=== PATIENT | male | born 1945 | race Caucasian/White ===

== ENCOUNTER 2019-11-22 18:12 | Inpatient (IN) | payer MEDICARE ==
[2019-11-22] MEDS ORDERED: MULTI-DAY VITAM1 TAB (18:32)
[2019-11-22] MEDS ORDERED: RANITIDINE HCL150 M1 PO (18:33)
[2019-11-22] MEDS ORDERED: SEROQUEL50 MG PO (18:33)
[2019-11-22] MEDS ORDERED: ZOCOR40 MG (18:33)
[2019-11-22] MEDS ORDERED: BAYER CHEWABLE81 MG (18:34)
[2019-11-22] MEDS ORDERED: FLOMAX0.4 MG (18:34)
[2019-11-22] MEDS ORDERED: SENNA LAXATIVE8.6 MG (18:35)
[2019-11-22 20:15] LABS: UDS - AMPHET NEGATIVE QUAL (NEGATIVE); UDS - BARB NEGATIVE QUAL (NEGATIVE); UDS - BENZO NEGATIVE QUAL (NEGATIVE); UDS - COCAINE NEGATIVE QUAL (NEGATIVE); UDS - OPIATE NEGATIVE QUAL (NEGATIVE); UDS - PCP NEGATIVE QUAL (NEGATIVE); UDS - THC NEGATIVE QUAL (NEGATIVE)
[2019-11-22 20:29] LABS: BASOPHILS 0.9 % (0-2); EOSINOPHILS 2.2 % (0-7); HEMATOCRIT 43.4 % (42.0-54.0); HEMOGLOBIN 14.2 g/dL (13.5-17.5); IMMATURE GRANULOCYTES 0.1 % (0-5); LYMPHOCYTES 22.9 % (15-50); MCH 30.2 pg (26.0-34.0); MCHC 32.7 g/dL (31.0-37.0); MCV 92.3 fL (80.0-100.0); MEAN PLATELET VOLUME 9.8 fL (7.4-10.4); MONOCYTES 8.5 % (2-11); NEUTROPHILS 65.4 % (40-80); PLATELET COUNT 226 10x3/uL (130-400)
[2019-11-22 20:30] LABS: CALC OSMOLALITY 278 mosm/kg (275-300); CALCIUM 8.9 mg/dL (8.5-10.1); CHLORIDE - SERUM 104 mmol/L (98-107); GLUCOSE 104 mg/dL (74-106); POTASSIUM - SERUM 3.9 mmol/L (3.5-5.1); SODIUM 140 mmol/L (136-145); UREA NITROGEN 13 mg/dL (7-18); eGFR NON AFRICAN AMERICAN 78 mL/min (90-120)
[2019-11-22 20:46] LABS: ALBUMIN 3.9 g/dL (3.4-5.0); ALKALINE PHOSPHATASE 78 U/L (30-120); ALT (SGPT) 37 U/L (10-68); BILIRUBIN - TOTAL 0.67 mg/dL (0.2-1.3); PROTEIN - SERUM 7.5 g/dL (6.4-8.2); THYROID STIMULATING HORMONE 2.25 uIU/mL (0.36-3.74)
[2019-11-22 21:38] LABS: BILIRUBIN NEGATIVE (NEGATIVE); GLUCOSE NEGATIVE (NEGATIVE); KETONE NEGATIVE (NEGATIVE); NITRITE NEGATIVE (NEGATIVE); SPECIFIC GRAVITY 1.025 (1.005-1.020); UROBILINOGEN NORMAL (NORMAL)
[2019-11-22] MEDS ORDERED: ZOLOFT100 MG PO (22:54)
--- NOTE | 2019-11-22 23:46 | NUR ---
PT ADMIT TO [place] FROM [facility]. VERBAL CONSENT FROM NOREEN ELIZABETH. SHE STATED HE IS A DNR. HIS CODE WORD 4718. HE IS ABLE TO AMBULATE ON HIS OWN WITHOUT ASST. HE IS INCONT OF B&B AT TIMES. VERIFIED HOME MEDS WITH . PT VSS AND IS RESTING CALMLY IN BED. HE IS A&O X3.
[2019-11-23 00:01] VITALS: BP 126/84; BMI 24.2
--- NOTE | 2019-11-23 02:20 | NUR ---
INCREASING COFUSION THOUGH THE NIGHT. BECOMING AGITATED. REDIRECT AND REORIENT.
--- NOTE | 2019-11-23 05:32 | NUR ---
PT HAS URGENCY TO VOID MANY TIMES THIS EVENING. HE DOESNT SEEM TO EMPTY HIS BLADDER COMPLETELY. REDIRECT WILL CONTINUE TO MONITOR.
--- NOTE | 2019-11-23 06:44 | NUR ---
VERY CONFUSED. WANTS LEAVE LEAVE UNIT. WANTS TO CALL . BECOMES VERY AGITATED.
[2019-11-23 07:47] VITALS: BP 139/90
[2019-11-23 08:05] LABS: CHOL - HDL RATIO 2.1 ratio (2.3-4.9); CHOLESTEROL, TOTAL 160 mg/dL (0-200); HDL CHOLESTEROL 76 mg/dL (32-96); LDL CHOLESTEROL 70 mg/dL (0-100); LDL-HDL RATIO 0.9 ratio (1.5-3.5); TRIGLYCERIDE 70 mg/dL (30-200)
--- NOTE | 2019-11-23 08:30 | NUR ---
RECEIVED IN HALLWAY OUTSIDE OF NURSES STATION. CALM AND COOPERATIVE WITH CARE AND ASSESSMENT. VERY CONFUSED. VERY FORGETFUL. EXIT SEEKING. PACING. INTRUSIVE. REDIRECT AND REORIENT NEEDED. EATING BREAKFAST AT THIS TIME. CONTINUE PLAN OF CARE.
--- NOTE | 2019-11-23 13:38 | NUR ---
PT CONTINUES TO WANDER AND PACE THE UNIT. PT IS EXIT SEEKING AND IS UNABLE TO UNDERSTAND REDIRECTION. PT IS LOOKING FOR THE FIRESTATION. ATTEMPTED TO REDIRECT TO ENVIRONMENT.
[2019-11-23 13:51] VITALS: Wt 82.5 kg
[2019-11-23 19:43] VITALS: BP 139/87
--- NOTE | 2019-11-23 19:54 | NUR ---
RECEIVED IN DAYROOM. SITTING AT TABLE SOCIALIZING WITH PEERS. VERY CONFUSED. CALM AND COOPERATIVE WITH CARE AND ASSESSMENT. NO SIGNS OF AGGRESSION. REDIRECT AND REORIENT NEEDED. CONTINUES TO SIT CALMLY IN DAYROOM. CONTINUE PLAN OF CARE.
[2019-11-24 08:10] LABS: RAPID PLASMA REAGIN Non Reactive (Non Reactive)
[2019-11-24 08:15] VITALS: BP 122/84
--- NOTE | 2019-11-24 10:17 | PSY ---
PATIENT NAME:LISBETH BUCHANAN JR MEDICAL RECORD: [id number] : 47 LOCATION:[facility] ADMISSION DATE: 11/22/19 ACCOUNT: [id number] PSYCHIATRIC EVALUATION DATE OF EVALUATION: 11/23/19 IDENTIFYING DATA: The patient is 74 years old and he is admitted to the hospital on a voluntary basis. CHIEF COMPLAINT: Confusion. HISTORY OF PRESENT ILLNESS: The patient presented to the Emergency Room yesterday evening. He has a known history of Alzheimer's disease and he has become increasingly agitated with his family. The family reports that they are not able to manage him, in fact that the agitation was so severe they had to bring him to the Emergency Room yesterday evening. The patient himself has no recollection of these events. He is calm and cooperative. He is clearly very impaired, but he is also 1:1 with a staff member who is constantly answering the same questions and redirecting him. PAST MEDICAL HISTORY: Significant for gastroesophageal reflux disease, benign prostatic hypertrophy, chronic constipation and hyperlipidemia. PAST PSYCHIATRIC HISTORY: Significant for an established diagnosis of dementia. He also has a history of anxiety and depression, which I believe are associated with the dementia. FAMILY HISTORY: Unknown. ALLERGIES: No known drug allergies. CURRENT MEDICATIONS: Include Seroquel, Zocor, aspirin, Flomax, and Zoloft. SOCIAL HISTORY: The patient is single. He has been in the past and he has adult children, although he cannot tell me how many. He worked in the [employer] and denies a history of drug or alcohol abuse. He thinks he is in [place], [place]. MENTAL STATUS EXAMINATION: The patient is awake and oriented to person only. His mood is euthymic. His affect appropriate. Thought processes are goal directed. Memory, concentration, and abstraction abilities are severely impaired and he denies any intent to harm himself or others as well as psychotic symptoms. ASSESSMENT: AXIS I: Major neurocognitive disorder of the Alzheimer's type with behavioral disturbances. AXIS II: None. AXIS III: Hyperlipidemia, benign prostatic hypertrophy. AXIS IV: Moderate. AXIS V: Global assessment of functioning is 30. PLAN: At this time, the patient is admitted to the hospital secondary to agitated behavior associated with severe and advanced dementing illness. He will be treated with both mood stabilizing and memory enhancing medications. His long-term prognosis is guarded. TRANSINT:[id number] Voice Confirmation ID: [id number] DOCUMENT ID: [id number] ANA DOSHI MD at 1017 CC: [id number] DICTATION DATE: 11/23/19 1235 SCAGLIOLA MECHANIC: 11/23/19 1300 ADM IN [facility] [address] [place] [address]
--- NOTE | 2019-11-24 11:21 | NUR ---
The patient is confused. He ambulates independently. He has poor insight into his situation, forgets things in minutes. He is calm, he has not shown any aggression today. Provide prescribed meds. The patient is compliant with meds. Continue POC.
--- NOTE | 2019-11-24 17:39 | NUR ---
PT IS VERY ANIXOUS, SHAKING AND ASKING HOW IS HE GONNA PAY FOR HIS DINNER? NURSE EXPLAINED THAT EVERYTHING WAS COVERED. NURSE ASKED IF HE WAS ANXIOUS. PT STATED HELL YES IM NERVOUS. EVERY LITTLE THING MAKES ME NERVOUS. ATIVAN 0.5 MG PO ADMINISTERED PER DR. DOSHI ORDER. WILL CONT TO MONITOR FOR EFFECTIVENESS.
[2019-11-24 20:30] VITALS: BP 126/80
--- NOTE | 2019-11-24 21:26 | NUR ---
PATIENT IS VERY CONFUSED, ANXIOUS, HAS TO BE DIRECTED AND REDIRECTED, COMPLIANT WITH MEDS, PATIENT'S VISUAL PERCEPTION SEEMS TO BE OFF, HE HESITATES TO SIT IN A CHAIR AND HE IS REACHING OUT FOR THINGS WHEN THEY ARE FAR AWAY FROM HIM. WILL FOLLOW POC
[2019-11-25 08:16] VITALS: BP 117/89
--- NOTE | 2019-11-25 08:27 | PN ---
PATIENT:LISBETH BUCHANAN JR MEDICAL RECORD: [id number] LOCATION:[facility] ADMISSION DATE: 11/22/19 PROGRESS NOTE DATE OF SERVICE: 11/24/2019 SUBJECTIVE: The patient's case was discussed with staff. He has no new complaint. OBJECTIVE: The patient has been calm, cooperative without any aggressive behaviors today. He did sleep well last night. He is also eating well. ASSESSMENT: Dementia. PLAN: The patient will be given Aricept at a dose of 5 mg at bedtime. Aricept is being used to treat his underlying cognitive impairment. He will be monitored for clinical changes associated with it. TRANSINT:[id number] Voice Confirmation ID: [id number] DOCUMENT ID: [id number] ANA DOSHI MD at 0827 CC: [id number] DICTATION DATE: 11/24/19 1500 SUPERVISOR COAL HANDLING: 11/24/19 [address] [facility] [address] [place] [address]
[2019-11-25 08:59] VITALS: BP 117/89
--- NOTE | 2019-11-25 09:25 | NUR ---
The patient is confused and he is unable to follow simple direction. He says he can not hear. He ambulates independently. Provide prescribed meds. He is co,pliant with meds. He has poor insight into his situation. He has not shown any aggression today. He is very forgetful. Continue POC.
[2019-11-25 20:25] VITALS: BP 135/83
--- NOTE | 2019-11-25 22:59 | NUR ---
B)RECEIVED PATIENT SITTING IN THE DAYROOM. CONFUSED AND DISORIENTED. [place] AND MISUNDERSTANDS WHAT IS BEING SAID. RELATES HE'S AT A PLACE FOR OLDER PEOPLE TO WORK WITH KEEPING THEM IN SHAPE. I)ADMINISTER MEDS AND MONITOR COMPLIANCE. REORIENT NEEDED. R)MED COMPLIANT. POOR REORIENTATION DUE TO IMPAIRED ABILITY TO COMPREHEND, PROCESS AND RETAIN INFORMATION. P)CONTINUE POC AND PROVIDE SAFE ENVIRONMENT.
[2019-11-26 09:39] VITALS: BP 130/78
--- NOTE | 2019-11-26 13:48 | NUR ---
Nutrition Follow-up: PO intake appears to fluctuate. Ate 10-100% of meals yesterday. Diet: Regular PO intake: 68% avg x 9 meals WT: 193# (11/22) No new labs Meds noted: Pepcid, Senokot -Encourage PO intake and honor food preferences. -Offer nutrition supplement if PO intake <50%. -Monitor wt. -RD following.
--- NOTE | 2019-11-26 16:27 | NUR ---
The patient is getting anxious, he is worried about his . He said he says "I keep getting all kinds of made up stories about where she is and I am worried about her. I love her and wanna take care of her." Provided ativan 0.5 mg po and stood and spoke with him for a few minutes. Asked him how they met, how long they had been , where they lived when they first and speaking to him calmed him a little bit. Will monitor his mood and behavior.
[2019-11-26 20:23] VITALS: BP 135/79
--- NOTE | 2019-11-26 21:46 | NUR ---
B.) PT IS ALERT AND ORIENTED TO SELF ONLY. HE HAS POOR INSIGHT INTO HIS SITUATION. HE IS VERY UNSTEADY WITH HIS GAIT SO HE USES A WHEELCHAIR TO ASSIST WITH AMBULATION. HE IS COOPERATIVE WITH STAFF. HE HAS VERY SHORT TERM RECALL. I.) PROVIDED PM MEDICATIONS. REDIRECT OFTEN. R.) COMPLIANT WITH ALL MEDICATIONS. DIFFICULT TO REDIRECT AT TIMES. P.) WILL CONTINUE TO MONITOR.
[2019-11-27 08:17] VITALS: BP 131/93
--- NOTE | 2019-11-27 10:00 | NUR ---
The patient gets himself worked up with worry. He is so concerned that his is going to divorce him because she has not been here to visit. Tried to explain that she is not able but he doesn't understand. Then he must have had a recall of something and he smacked his head and said "Oh, that's right." He wants to call her and talk to her, tried to explain to him that he can try to call her between 5:30 pm and 7:00 pm. He said "Is that 5:30 in the morning?" Explained to him that it is p.m. He said "In the morning?" Said to him "That it is in the evening." He is very confused and has poor insight into his situation and very poor short term memory recall. Continue POC.
--- NOTE | 2019-11-27 15:46 | NUR ---
ATIVAN 0.5MG PO GIVEN FOR ANXIETY.WANTS TO GO HOME.MISSING HIS .RESTLESS AND DIFFICULT TO REDIRECT.DOES NOT UNDERSTAND WHY HE IS HERE AND CAN'T GO HOME.
--- NOTE | 2019-11-27 16:41 | NUR ---
GOOD RESPONSE TO ATIVAN.CALM AND COMPLIANT .
[2019-11-27 20:11] VITALS: BP 137/83
--- NOTE | 2019-11-27 21:15 | NUR ---
B.) PT IS ALERT AND ORIENTED TO SELF ONLY. HE CONTINUES TO HAVE POOR INSIGHT INTO HIS SITUATION. HE IS VERY CONCERNED ABOUT HIS NOT KNOWING WHERE HE IS. HE IS ANXIOUS AND PACING AT TIMES. HE IS ABLE TO AMBULATE WITHOUT ASSIST. I.) PROVIDED PM MEDICATIONS PRESCRIBED. REDIRECT OFTEN. R.) COMPLIANT WITH ALL MEDICATIONS. DIFFICULT TO REDIRECT AT TIMES. P.) WILL CONTINUE TO MONITOR.
[2019-11-28 07:41] VITALS: BP 133/88
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
--- NOTE | 2019-11-28 19:42 | NUR ---
RECEIVED IN DAYROOM. WALKING ABOUT SOCIALING WITH PEERS AND STAFF. CALM AND COOPERATIVE WITH CARE NAD ASSESSMENT. NO SIGNS OF AGGRESSION. REDIRECT AND REORIENT NEEDED. SITTING CALMLY AT THIS TIME. CONTINUE PLAN OF CARE.
[2019-11-28 20:00] VITALS: BP 103/81
[2019-11-29 08:05] VITALS: BP 124/91
--- NOTE | 2019-11-29 12:00 | NUR ---
RECEIVED IN HALLWAY OUTSIDE OF NURSES STATION. CALM AND COOPERATIVE WITH CARE AND ASSESSMENT. VERY CONFUSED. NO AGITATION. REDIRECT AND REORIENT NEEDED. EATING AT THIS TIME. CONTINUE PLAN OF CARE.
--- NOTE | 2019-11-29 13:22 | PN ---
PATIENT:LISBETH BUCHANAN JR MEDICAL RECORD: [id number] LOCATION:[facility] ADMISSION DATE: 11/22/19 PROGRESS NOTE DATE OF SERVICE: 11/25/2019 SUBJECTIVE: The patient's case was discussed with staff. He has no new complaint. OBJECTIVE: The patient is extremely impaired cognitively, unable to remember anything more than just momentarily. He has not been aggressive. I do not think this is related to some fundamental improvement in his situation, but rather to almost constant supervision and redirection. He is definitely going to need 73-uefm-s-day supervision and at this point will assist with the family in making those arrangements. TRANSINT:[id number] Voice Confirmation ID: [id number] DOCUMENT ID: [id number] ANA DOSHI MD at 1322 CC: [id number] DICTATION DATE: 11/25/19 1558 SECRETARY BOOKKEEPER: 11/25/19 1807 ADM IN [id number] [place] [id number]
[2019-11-29 20:51] VITALS: BP 130/82
--- NOTE | 2019-11-29 21:09 | NUR ---
RECEIVED IN DAYROOM. SITTING IN A CHAIR WITH PEERS AT HIS SIDE. VERY CONFUSED. CALM AND COOPERATIVE WITH CARE AND ASSESSMENT. NO SIGNS OF AGGRESSION. REDIRECT AND REORIENT NEEDED. RESTING IN BED EYES OPEN AT THIS TIME. CONTINUE PLAN OF CARE.
[2019-11-30 08:41] VITALS: BP 127/91
--- NOTE | 2019-11-30 09:38 | PN ---
PATIENT:LISBETH BUCHANAN JR MEDICAL RECORD: [id number] LOCATION:[facility] ADMISSION DATE: 11/22/19 PROGRESS NOTE DATE OF SERVICE: 11/29/2019 SUBJECTIVE: The patient's case was discussed with staff. He has no new complaint. OBJECTIVE: The patient denies intent to harm himself or others. He is tolerating his medicines well. He is eating and sleeping well. He is significantly and seriously confused and definitely needs 69-wrkp-g-day supervision. I will look for placement to assist with this. TRANSINT:[id number] Voice Confirmation ID: [id number] DOCUMENT ID: [id number] ANA DOSHI MD at 0938 CC: [id number] DICTATION DATE: 11/29/19 1548 MILIEU COUNSELOR: 11/29/19 1601 ADM IN [facility] [address] [place] [address]
--- NOTE | 2019-11-30 12:00 | NUR ---
RECEIVED IN HALLWAY OUTSIDE OF NURSES STATION. CALM AND COOPERATIVE WITH CARE AND ASSESSMENT. AGITATED WITH STAFF TODAY. VERY CONFUSED. REDIRECT AND REORIENT NEEDED. EATING LUNCH AT THIS TIME. CONTINUE PLAN OF CARE.
--- NOTE | 2019-11-30 14:14 | NUR ---
SAMANTHA DID THREE REFERRALS AT , [facility]. SHASTA AND MIKE STATED THEY ARE NOT ABLE TO TAKE PT DUE TO NOT BEING ABLE TO EFFECTIVELY ISOLATE HIM FOR 14 DAYS. SW CONTACTED [facility] AND THEY ARE WORKING TO SEE IF THEY CAN MEET PT'S NEEDS. SAMANTHA CALLED NAMITA AND LET HER KNOW WHAT WAS BEING SAID BY THE REFERRAL SOURCES. SHE STATED SHE WOULD CONTACT AGGIE AT [facility] AND A PERSONAL CUSTODIAL TO SEE IF THEY COULD MEET PT'S NEEDS. NAMITA VOICED UNDERSTANDING OF DISCUSSION.
--- NOTE | 2019-11-30 19:41 | NUR ---
RECEIVED IN DAYROOM. SITTING IN A CHAIR WITH PEERS AT HIS SIDE. CALM AND COOPERATIVE WITH CARE AND ASSESSMENT. NO SIGNS OF AGGRESSION. REDIRECT AND REORIENT NEEDED. CONTINUES TO SIT CALMLY IN DAYROOM. CONTINUE PLAN OF CARE.
[2019-11-30 20:24] VITALS: BP 143/76
--- NOTE | 2019-12-01 07:39 | NUR ---
The patient is awake and alert, he is pleasant, but he has poor insight into his situation. He has poor short term memory recall. He knows his name, but not place or time. Provide prescribed meds. Redirect as needed and as often as needed as he asks the same question over and over. Provide prescribed meds. Continue POC.
--- NOTE | 2019-12-01 07:41 | NUR ---
The patient is awake and alert, he has poor insight into his situation. He is pleasant he has no clue why he is here and he knows his name. He knows the place and the time. He ambulates with a rolling walker. Provide prescribed meds. The patient is compliant with meds. Continue POC.
[2019-12-01 08:00] VITALS: BP 138/90
--- NOTE | 2019-12-01 12:53 | PN ---
PATIENT:LISBETH BUCHANAN JR MEDICAL RECORD: [id number] LOCATION:[facility] ADMISSION DATE: 11/22/19 PROGRESS NOTE DATE OF SERVICE: 11/30/2019 SUBJECTIVE: The patient's case was discussed with staff. He has no new complaint. OBJECTIVE: The patient is in good behavioral control. He has poor insight about his situation. He tolerates his medicines well. ASSESSMENT: Dementia. PLAN: The patient is in need of 94-oegt-k-day supervision. He is coming from home and is going to be placed in a detention. Once an appropriate facility has approved him, he can be transitioned out of the hospital. TRANSINT:[id number] Voice Confirmation ID: [id number] DOCUMENT ID: [id number] ANA DOSHI MD at 1253 CC: [id number] DICTATION DATE: 11/30/19 1250 DRIP MOLDER: 11/30/19 1505 ADM IN [facility] [address] [place] [address]
[2019-12-01] MEDS ORDERED: KLONOPIN0.5 MG PO (16:18)
[2019-12-01] MEDS ORDERED: DONEPEZIL HCL5 MG PO (16:18)
[2019-12-01] MEDS ORDERED: Megace ES [CHEMO] PO (16:19)
[2019-12-01] MEDS ORDERED: PEPCID PO (16:19)
[2019-12-01 20:06] VITALS: BP 139/94
--- NOTE | 2019-12-01 23:50 | NUR ---
B.) PT IS ALERT AND ORIENTED TO SELF ONLY. HE IS ABLE TO AMBUALTE ON HIS OWN WITHOUT ASSIST. HE IS ABLE TO MAKE HIS NEEDS KNOWN. HE IS RESTLESS AT TIMES. HE IS COOPERATIVE WITH STAFF FOR THE MOST PART. I.) PROVIDED PM MEDICATIONS. REDIRECT OFTEN. R.) COMPLIANT WITH ALL MEDICATIONS. EASY TO REDIRECT FOR THE MOST PART. P.) WILL CONTINUE TO MONITOR.
--- NOTE | 2019-12-02 09:00 | NUR ---
PATIENT SITTING AT DINING TABLE AT THIS TIME EATING BREAKFAST. PT IS CALM AND COOPERATIVE WITH STAFF. PT IS ALERT AND CONFUSED. PT IS DIORIENTED TO PLACE, TIME AND SITUATION. COMPLIANT WITH MEDS, VITALS AND ASSESSMENTS. REDIRECT AND REORIENT NEEDED. LACK OF UNDERSTANDING DUE TO LOW COGNITIVE FUNCTION. PT AMBULATES. ASSISTANCE NEEDED FOR ADLS. CONT TO MONITOR AND CONT PLAN OF CARE.
--- NOTE | 2019-12-02 10:00 | NUR ---
REPORT CALLED INTO RONI BRAY AT THE [facility]. PAPERWORK FAXED TO THE [facility]. NURSE GAVE LIST OF MEDICATIONS AND OBTAINED PHARMACY TO CALL MEDS INTO. CALLBACK NUMBER GIVEN.
[2019-12-02 10:42] VITALS: BP 115/88
--- NOTE | 2019-12-02 12:05 | NUR ---
PT DISCHARGED WITH THE [facility] ST[facility]FF. PAPERWORK FAXED AND PAPERWORK COPY SENT WITH STAFF MEMEBER. PT WAS CALM AND COOPERATIVE UPON DISCHARGE. PT TOOK MEDICATION THIS SHIFT. CALL BACK NUMBER GIVEN.
--- NOTE | 2019-12-02 12:15 | NUR ---
NOTIFIED OF PTS DISCHARGE. SHE THANKED NURSE.
--- NOTE | 2019-12-02 14:44 | PN ---
PATIENT:LISBETH BUCHANAN JR MEDICAL RECORD: [id number] LOCATION:[facility] ADMISSION DATE: 11/22/19 PROGRESS NOTE DATE OF SERVICE: 12/01/2019 SUBJECTIVE: The patient's case was discussed with staff. He has no new complaint. OBJECTIVE: The patient is in good behavioral control, although very impaired cognitively. He is also displaying a high degree of anxiety, not understanding or being able to process anything in his environment. He has not been aggressive and can be redirected. ASSESSMENT: Dementia. PLAN: I am going to increase the patient's Klonopin to 4 daily to assist with the anxiety that he has. He will be transitioned out of the hospital into the skilled nursing tomorrow. TRANSINT:[id number] Voice Confirmation ID: [id number] DOCUMENT ID: [id number] ANA DOSHI MD at 1444 CC: [id number] DICTATION DATE: 12/01/19 1617 BAR TACKER SEWING MACHINE: 12/01/19 1651 DIS IN 12/02/19 [id number] [place] [address]
== END 2019-12-02 12:12 | DRG 57 ==
LOC: D.ER 18:12 → D.PSYCH 22:29
PROVIDERS: Family Medicine; ADMIT Psychiatry & Neurology Psychiatry; ATTEND Psychiatry & Neurology Psychiatry
DX: G30.1 Alzheimer's disease with late onset (principal); F02.81 Dementia in other diseases classified elsewhere, unspecified severity, with behavioral disturbance; F41.8 Other specified anxiety disorders; K21.9 Gastro-esophageal reflux disease without esophagitis; N40.0 Benign prostatic hyperplasia without lower urinary tract symptoms; K59.01 Slow transit constipation; E78.5 Hyperlipidemia, unspecified; R63.0 Anorexia; Z68.24 Body mass index [BMI] 24.0-24.9, adult

== ENCOUNTER 2019-12-11 18:36 | Inpatient (IN) | payer MEDICARE ==
[~2019-12-11] VITALS: Ht 182.9 cm; Wt 76.5 kg
[2019-12-11 02:35] VITALS: BP 126/104
[~2019-12-11 18:36] MED LIST: BAYER CHEWABLE81 MG; DONEPEZIL HCL5 MG PO; FLOMAX0.4 MG; KLONOPIN0.5 MG PO; MULTI-DAY VITAM1 TAB; Megace ES [CHEMO] PO; PEPCID PO; RANITIDINE HCL150 M1 PO; SENNA LAXATIVE8.6 MG; SEROQUEL50 MG PO; ZOCOR40 MG; ZOLOFT100 MG PO
[2019-12-11 19:16] LABS: BASOPHILS 0.4 % (0-2); EOSINOPHILS 0.9 % (0-7); HEMATOCRIT 40.2 % (42.0-54.0); HEMOGLOBIN 13.5 g/dL (13.5-17.5); IMMATURE GRANULOCYTES 0.1 % (0-5); LYMPHOCYTES 13.6 % (15-50); MCHC 33.6 g/dL (31.0-37.0); MCV 89.3 fL (80.0-100.0); MEAN PLATELET VOLUME 10.5 fL (7.4-10.4); MONOCYTES 10.7 % (2-11); NEUTROPHILS 74.3 % (40-80); PLATELET COUNT 214 10x3/uL (130-400); RDW 12.8 % (11.5-14.5); WBC 8.5 10x3/uL (4.8-10.8)
[2019-12-11 19:31] LABS: ANION GAP 12.6 mmol/L (8-16); CALCIUM 8.4 mg/dL (8.5-10.1); CARBON DIOXIDE 24.5 mmol/L (21.0-32.0); CREATININE - SERUM 1.3 mg/dL (0.6-1.3); POTASSIUM - SERUM 3.1 mmol/L (3.5-5.1)
--- NOTE | 2019-12-11 19:31 | NUR ---
URINE SPEC TO LAB
--- NOTE | 2019-12-11 19:34 | NUR ---
[facility] CALLED PER DR VOGEL REQUEST. LACY STATES SEND INFO AFTER LABS RESULTED
[2019-12-11 19:38] LABS: ALBUMIN 3.4 g/dL (3.4-5.0); BILIRUBIN - TOTAL 0.56 mg/dL (0.2-1.3); MAGNESIUM - SERUM 2.1 mg/dL (1.8-2.4); PROTEIN - SERUM 6.8 g/dL (6.4-8.2)
[2019-12-11 19:52] LABS: BILIRUBIN NEGATIVE (NEGATIVE); GLUCOSE NEGATIVE (NEGATIVE); KETONE NEGATIVE (NEGATIVE); NITRITE NEGATIVE (NEGATIVE); SPECIFIC GRAVITY 1.025 (1.005-1.020); UROBILINOGEN NORMAL (NORMAL)
[2019-12-11 19:56] LABS: BACTERIA MODERATE /hpf (NEGATIVE); CALCIUM OXALATE CRYSTALS 0-5 /hpf (NONE SEEN); EPITHELIAL CELLS NSEEN /hpf (0-5); RED CELLS - URINE NONE SEEN /hpf (0-5); WHITE CELLS - URINE 0-5 /hpf (NEGATIVE)
--- NOTE | 2019-12-11 20:07 | NUR ---
INFO FAXED TO CARE
[2019-12-11 20:25] LABS: UDS - AMPHET NEGATIVE QUAL (NEGATIVE); UDS - BARB NEGATIVE QUAL (NEGATIVE); UDS - BENZO NEGATIVE QUAL (NEGATIVE); UDS - COCAINE NEGATIVE QUAL (NEGATIVE); UDS - OPIATE NEGATIVE QUAL (NEGATIVE); UDS - PCP NEGATIVE QUAL (NEGATIVE); UDS - THC NEGATIVE QUAL (NEGATIVE)
--- NOTE | 2019-12-11 21:47 | NUR ---
PATIENT ARRIVED VIA WHEELCHAIR FROM OUR E.D. AT 21;30 , CODE STATUS IS 'DNR', VERBAL CONSENT FROM (POA) [facility]N TO ADMIT, AGRESSION AT HOME, INCREASED CONFUSION, LOOKING PLACEMENT, CALM AND COOPERATIVE TONIGHT, WILL CONTINUE TO MONITOR.
[2019-12-11 22:00] VITALS: BP 126/104
--- NOTE | 2019-12-11 23:35 | NUR ---
PT PACING THE HALLS. RELATES HE JUST CANT SEEM TO GET HIS MIND TO SLOW DOWN TO GET SOME SLEEP. PROVIDED PRN ATIVAN 0.5 MG PO TABLET. WILL CONTINUE TO MONITOR.
[2019-12-12 01:35] VITALS: BP 126/104; BMI 24.5
--- NOTE | 2019-12-12 01:53 | NUR ---
PT NOTABLY LESS RESTLESS. STILL PACING THE HALLS. WILL CONTINUE TO MONITOR.
--- NOTE | 2019-12-12 02:10 | NUR ---
PT IS GETTING INCREASINGLY AGITATED WITH STAFF WANTING THEM TO CALL HIS . UNABLE TO REDIRECT. PRN HALDOL 2 MG AND ATIVAN 0.5 MG IM ADMINISTERED. WILL CONTINUE TO MONITOR.
[2019-12-12 07:48] LABS: CHOL - HDL RATIO 2.2 ratio (2.3-4.9); THYROID STIMULATING HORMONE 1.32 uIU/mL (0.36-3.74)
[2019-12-12 08:34] VITALS: BP 142/78
--- NOTE | 2019-12-12 12:48 | NUR ---
The patient is awake and alert and he is oriented to his name only. He needs much redirection. He said he ad to go to the bathroom and I walked him to the toilet and he can tell you he needs to void, but he can not put most of his sentences together and he startles easily when staff approach him. He needs a calm gentle approach and only one person as he can become agitated easily. Provide prescribed meds. The patient is compliant with meds. Continue POC.
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
--- NOTE | 2019-12-12 20:02 | NUR ---
RECEIVED IN DAYROOM. SITTING IN A CHAIR WITH PEERS AT HIS SIDE. CALM AND COOPERATIVE WITH CARE AND ASSESSMENT. NO SIGNS OF AGGRESSION. REDIERCT AND REORIENT NEEDED. CONTINUES TO SIT CALMLY IN DAYROOM. CONTINUE PLAN OF CARE.
[2019-12-12 20:04] VITALS: BP 106/79
--- NOTE | 2019-12-12 22:15 | NUR ---
PT APPEARS TO HAVE VISUAL DISTURBANCE WITH THE DARK TILES ON THE FLOOR ON HIS WAY TO HIS ROOM THIS EVENING. HE REFUSED TO GO ANY FURTHER UNTIL HE WAS DISTRACTED ENOUGH TO CROSS THE DARKER TILES. WILL CONTINUE TO MONITOR.
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
[2019-12-13 07:40] VITALS: BP 128/60
[2019-12-13 10:47] VITALS: Ht 182.9 cm; Wt 76.5 kg
--- NOTE | 2019-12-13 12:00 | NUR ---
RECEIVED IN HALLWAY OUTSIDE OF NURSES STATION. CALM AND COOPERATIVE WITH CARE AND ASSESSMENT. AGGRESSIVE WITH STAFF AT TIMES. REDIRECT ADN REORIENT NEEDED. EATING LUNCH AT THIS TIME. CONTINUE PLAN OF CARE.
[2019-12-13 21:00] VITALS: BP 120/87
--- NOTE | 2019-12-13 21:51 | NUR ---
RECEIVED IN HALLWAY OUTSIDE OF [facility] STATION. CALM AND COOPERATIVE WITH CARE AND ASSESSMENT. NO SIGNS OF AGGRESSION. REDIRECT AND REORIENT NEEDED. RESTING IN BED WITH EYES CLOSED AT THIS TIME. CONTINUE PLAN OF CARE.
[2019-12-14 08:04] VITALS: BP 137/100
--- NOTE | 2019-12-14 15:00 | PN ---
PATIENT:LISBETH BUCHANAN JR MEDICAL RECORD: [id number] LOCATION:[facility] ADMISSION DATE: 12/11/19 PROGRESS NOTE DATE OF SERVICE: 12/13/2019 SUBJECTIVE: The patient's case was discussed with staff. He has no new complaint. OBJECTIVE: The patient slept reasonably well last night. He also ate reasonably well. I think the patient's primary situation is one of needing additional supervision and I understand why his brought him home, but it is clear he is going to need a locked facility. He has almost no insight about his situation. ASSESSMENT: Dementia. PLAN: Current medicines have been reviewed. The believes that the Aricept is causing his confusion, which is almost certainly not the case, but given the fact that his dementia is advanced, there is probably not much the medicine can do for him, so I am going to just discontinue it. He will be monitored for clinical changes associated with this discontinuation. TRANSINT:[id number] Voice Confirmation ID: [id number] DOCUMENT ID: [id number] ANA DOSHI MD at 1500 CC: [id number] DICTATION DATE: 12/13/19 1336 GRIEVANCE COORDINATOR: 12/13/19 1400 ADM IN [facility] [address] [place] [address]
--- NOTE | 2019-12-14 17:00 | NUR ---
RECEIVED IN HALLWAY OUTSIDE OF NURSES STATION. CALM AND COOPERATIVE WITH CARE AND ASSESSMENT. NO AGITATION TODAY. NO EXIT SEEKING. REDIRECT AND REORIENT NEEDED. EATING AT THIS TIME. CONTINUE PLAN OF CARE.
[2019-12-14 20:09] VITALS: BP 164/68
--- NOTE | 2019-12-14 21:22 | NUR ---
RECEIVED IN DAYROOM. RESTING QUIETLY IN A CHAIR WITH PEERS AT HIS SIDE. CALM AND COOPERATIVE WITH CARE AND ASSESSMENT. CONFUSED. NO SIGNS OF AGGRESSION. REDIRECT AND REORIENT NEEDED. RESTING IN BED WITH EYES CLOSED AT THIS TIME. CONTINUE PLAN OF CARE.
[2019-12-15 07:13] LABS: RAPID PLASMA REAGIN Non Reactive (Non Reactive)
--- NOTE | 2019-12-15 08:49 | NUR ---
LATE NOTE 12/13 SW SPOKE TO PT'S NAMITA TO DISCUSS PT'S DISCHARGE PLANS. SW STATED PT NEEDS A LOCKED BEHAVIORAL UNIT. NAMITA STATED SW COULD DO A REFERRAL TO [facility]. SW STATED SHE NEEDS TO DO A REGINA AND PT NEEDS TO BE STABLE BEFORE REFERRAL. NAMITA VERBALIZED UNDERSTANDING OF DISCUSSION.
[2019-12-15 10:28] VITALS: BP 150/94
--- NOTE | 2019-12-15 10:53 | NUR ---
The patient is awke, he is pleasant, he knows his name, but he has poor insight into his situation. He can tell staff he needs to use the toilet and he will get a bit restless then when approached he will tell staff what he needs. He can ambulate with staff assist he is unsteady. Provide prescribed meds. The patient is compliant with meds. He does not interact with his peers and it is difficult for him to participate in groups and activities. Continue POC.
--- NOTE | 2019-12-15 14:51 | PN ---
PATIENT:LISBETH BUCHANAN JR MEDICAL RECORD: [id number] LOCATION:[facility] ADMISSION DATE: 12/11/19 PROGRESS NOTE DATE OF SERVICE: 12/14/2019 SUBJECTIVE: The patient's case was discussed with staff. He has no new complaint. OBJECTIVE: The patient denies intent to harm himself or others. He is tolerating his medicines well. He is seriously and significantly impaired cognitively. ASSESSMENT: Dementia. PLAN: Current medicines and therapies have been reviewed and will be maintained. Long-term prognosis is guarded. I anticipate he can be transitioned out of the hospital soon if appropriate placement can be arranged. TRANSINT:[id number] Voice Confirmation ID: [id number] DOCUMENT ID: [id number] ANA DOSHI MD at 1451 CC: [id number] DICTATION DATE: 12/14/19 1534 CONTROLLER MECHANIC: 12/14/19 2258 ADM IN [place] [id number] [place] [address]
[2019-12-15 20:11] VITALS: BP 145/77
--- NOTE | 2019-12-15 22:27 | NUR ---
B.) PT IS ALERT AND ORIENTED TO SELF ONLY. HE IS RECEIVED IN THE DAYROOM ON THE PHONE WITH HIS . HE HAS POOR INSIGHT INTO HIS SITUATION. HE IS CALM AND COOPERATIVE WITH STAFF FOR THE MOST PART. I.) PROVIDED PM MEDICATIONS PRESCRIBED. REDIRECT OFTEN. R.) NON-COMPLIANT WITH MEDICATIONS. EASY TO REDIRECT. P.) WILL CONTINUE TO MONITOR.
--- NOTE | 2019-12-16 02:33 | NUR ---
PT IS AGGRESSIVE WITH STAFF THEY ASSIST WITH CARE. PT IS RESTLESS AND UNABLE TO REDIRECT. ADMINISTERED PRN 0.5 MG ATIVAN IM AND 2 MG HALDOL IM. WILL CONTINUE TO MONITOR
[2019-12-16 08:33] VITALS: BP 148/89
--- NOTE | 2019-12-16 14:14 | NUR ---
Nutrition Follow-up: Overall poor PO intake. Ate 0-20% of meals yesterday. Noted Megace added. Diet: Regular PO intake: 26% avg x 9 meals Wt: 178# (12/12); 180.2# (12/11) No new labs Meds noted: Jasvirce, Senokot, Pepcid -Encourage PO intake and honor food preferences. -+Ensure with meals. -Monitor wt. -RD following.
--- NOTE | 2019-12-16 14:39 | PN ---
PATIENT:LISBETH BUCHANAN JR MEDICAL RECORD: [id number] LOCATION:[facility] ADMISSION DATE: 12/11/19 PROGRESS NOTE DATE OF SERVICE: 12/15/2019 SUBJECTIVE: The patient's case was discussed with staff. He has no new complaint. OBJECTIVE: The patient denies intent to harm himself or others. He is tolerating his medicines well. He has poor insight about his situation. His oral intake is not acceptable and I have encouraged him to eat more, which he says he will try to do. I am going to prescribe Megace to assist with appetite stimulation. TRANSINT:[id number] Voice Confirmation ID: [id number] DOCUMENT ID: [id number] ANA DOSHI MD at 1439 CC: [id number] DICTATION DATE: 12/15/19 170 DIRECTOR NURSES' REGISTRY: 12/16/19 0220 ADM IN [facility] [address] [place] [id number]
--- NOTE | 2019-12-16 17:34 | NUR ---
RECEIVED THIS AM IN RECLINER.IS ORIENTED TO SELF .REQUIRES TOTAL CARE PER STAFF.NO AGGRESSION OBSERVED.WILL CONTINUE WITH CURRENT PLAN FO CARE,MONITOR FOR CHANGES AND SAFETY.
[2019-12-16 20:38] VITALS: BP 133/77
--- NOTE | 2019-12-16 22:02 | NUR ---
RECEIVED PATIENT IN DAYROOM, SITTING IN GERICHAIR, PATIENT IS VERY CONFUSED, COMPLIANT WITH MEDS, DOES NOT MAKE NEEDS KNOWN, WHILE DOING INCONTINENT CARE HE WAS A LITTLE AGGRESSIVE AND RESISTANT. HE IS TOTAL CARE. WILL FOLLOW POC AND MONITOR
[2019-12-17 10:36] VITALS: BP 150/87
[2019-12-17 11:45] LABS: BASOPHILS 0.2 % (0-2); EOSINOPHILS 0.2 % (0-7); HEMATOCRIT 42.7 % (42.0-54.0); HEMOGLOBIN 14.4 g/dL (13.5-17.5); IMMATURE GRANULOCYTES 0.1 % (0-5); LYMPHOCYTES 9.7 % (15-50); MCH 30.4 pg (26.0-34.0); MCHC 33.7 g/dL (31.0-37.0); MCV 90.3 fL (80.0-100.0); MEAN PLATELET VOLUME 10.6 fL (7.4-10.4); MONOCYTES 7.9 % (2-11); NEUTROPHILS 81.9 % (40-80); PLATELET COUNT 250 10x3/uL (130-400); RBC 4.73 10x6/uL (4.20-6.10); WBC 9.5 10x3/uL (4.8-10.8)
[2019-12-17 11:52] LABS: ANION GAP 11.4 mmol/L (8-16); CALCIUM 9.2 mg/dL (8.5-10.1); CARBON DIOXIDE 29.7 mmol/L (21.0-32.0); CREATININE - SERUM 1.2 mg/dL (0.6-1.3); POTASSIUM - SERUM 3.1 mmol/L (3.5-5.1)
--- NOTE | 2019-12-17 12:07 | NUR ---
The patient is awake and alert, he is leaning to his left side. He is confused. He has poor insight into his situation. His UA shows moderate bacteria so Sayda Flynn APN ordered Rocphin injections and a probiotic. See MAR. Provide precribed meds. The patient is compliant with meds. Continue POC.
--- NOTE | 2019-12-17 12:29 | NUR ---
The patient is not eating well, but staff are trying to encourage him and assist him to eat. He is drinking his ensure and fluids, but needs much encouragement. Continue to offer fluids and ask him about toileting every two hours.
--- NOTE | 2019-12-17 18:38 | NUR ---
Continue to offer the patient meals and fluids. He is doing well to drink, but he doesn't want to eat.
[2019-12-17 20:18] VITALS: BP 127/83
--- NOTE | 2019-12-18 02:06 | NUR ---
RECEIVED PATIENT IN HIS BED, PATIENT QUIET, SHOWED SOME EXRESSION WHILE TALKING TO HIM DURING MEDICATION ADMINISTRATION. HE IS A TOTAL CARE PATIENT, NOT EXHIBITING ANY AGGRESSION OR ANY SIGNS OF DISTRESS. WILL FOLLOW POC
--- NOTE | 2019-12-18 07:33 | NUR ---
The patient is in his bed and he is more alert this am, he has poor insight into his situation. He has poor insight into his situation. He is able to talk and it makes sense at times, but other times it is nonsensical. He has not shown any aggression today. Provide prescribed meds. Encourage the patient to drink fluids every two hours and assist him to eat meals. Continue to monitor behavior. Continue POC.
[2019-12-18 09:13] VITALS: BP 118/75
[2019-12-18 20:00] VITALS: BP 144/87
--- NOTE | 2019-12-18 21:16 | NUR ---
RECEIVED PATIENT SITTING IN GERICHAIR, CALM, CONFUSED, NO NEGATIVE BEHAVIORAL ISSUES, COMPLIANT WITH MEDS, TOTAL CARE PATIENT, DOES NOT MAKE NEEDS KNOWN. WILL FOLLOW POC
[2019-12-19 10:35] VITALS: BP 135/65
--- NOTE | 2019-12-19 14:55 | NUR ---
PT IS VERY DROWSY THIS SHIFT. CALM AND COOPERATIVE WITH ASSESSMENT. NO BEHAVIORS NOTED AT THIS TIME. PRESCRIBED MEDS PROVIDED PER ORDER. MED COMPLIANT. REDIRECT AND REORIENT NEEDED. FALL PRECAUTIONS IN PLACE. WILL CPOC.
[2019-12-19 20:00] VITALS: BP 144/79
--- NOTE | 2019-12-19 20:23 | NUR ---
RECEIVED IN DAYROOM. SITTING QUIETLY IN A RECLINER. CALM AND COOPERATIVE WITH CARE AND ASSESSMENT. NO SIGNS OF AGGRESSION. REDIRECT AND REORIENT NEEDED. CONTINUES TO SIT CALMLY IN DAYROOM. CONTINUE PLAN OF CARE.
[2019-12-20 08:18] VITALS: BP 124/70
--- NOTE | 2019-12-20 10:08 | NUR ---
SW SPOKE TO PT'S AND DISCUSSED PT'S DISCHARGE PLANS. PT WILL BE REFERRED TO [facility] AND DISCHARGED TO [facility] WHEN STABLE.
--- NOTE | 2019-12-20 15:05 | PN ---
PATIENT:LISBETH BUCHANAN JR MEDICAL RECORD: [id number] LOCATION:[facility] ADMISSION DATE: 12/11/19 PROGRESS NOTE DATE OF SERVICE: 12/16/2019 SUBJECTIVE: The patient's case was discussed with staff. He has no new complaint. OBJECTIVE: The patient is disorganized and was significantly agitated. He required p.r.n. medication yesterday. He has a very poor insight about the situation and actually does not remember the agitation. He is still not eating. He only ate 20% of breakfast and dinner yesterday for a total of less than half of one meal. When questioned about this, he says he is eating. ASSESSMENT: Dementia. PLAN: The patient has been started on Megace to assist with appetite stimulation. He is already taking a significant dose of an antidepressant. Given his behavior problems, I am going to start him on Geodon at a dose of 20 mg at bedtime. Geodon is being used to treat his underlying disruptive behaviors and disorganized thought processes. TRANSINT:[id number] Voice Confirmation ID: [id number] DOCUMENT ID: [id number] ANA DOSHI MD at 1505 CC: [id number] DICTATION DATE: 12/16/19 1506 LICENSED BONDSMAN: 12/16/19 3742 [facility] IN [place] [address] [place] [address]
--- NOTE | 2019-12-20 20:25 | NUR ---
RECEIVED IN DAYROOM. SITTING IN A CHAIR WITH PEERS AT HIS SIDE. CALM AND COOPERATIVE WITH CAR AND ASSESSMENT. VERY CONFUSED. NO SIGNS OF AGGRESSION. CONTINUES TOO SIT CALMLY IN DAYROOM. CONTINUE PLAN OF CARE.
[2019-12-20 20:50] VITALS: BP 134/96
[2019-12-21 08:58] VITALS: BP 170/70
--- NOTE | 2019-12-21 13:07 | PN ---
PATIENT:LISBETH BUCHANAN JR MEDICAL RECORD: [id number] LOCATION:[facility] ADMISSION DATE: 12/11/19 PROGRESS NOTE DATE OF SERVICE: 12/20/2019 SUBJECTIVE: The patient's case was discussed with staff. He has no new complaint. OBJECTIVE: The patient is not eating and has very limited insight about his situation. He is only oriented to person. ASSESSMENT: Dementia. PLAN: The patient will be maintained on current therapies, but I am going to hold his medications that might be sedating. He is being referred to hospice. His prognosis is unfortunately poor. TRANSINT:[id number] Voice Confirmation ID: [id number] DOCUMENT ID: [id number] ANA DOSHI MD at 1307 CC: [id number] DICTATION DATE: 12/20/19 1633 DROPPER TANK STORAGE: 12/21/19 0210 ADM IN [facility] [address] [id number]
[2019-12-21] MEDS ORDERED: PEPCID PO (14:47)
[2019-12-21] MEDS ORDERED: FLORAJEN3 CAPS460 MG PO (14:47)
[2019-12-21] MEDS ORDERED: LINZESS145 MCG PO (14:47)
[2019-12-21] MEDS ORDERED: Megace ES [CHEMO] PO (14:47)
--- NOTE | 2019-12-21 15:00 | NUR ---
PT SITTING IN CHAIR AT THIS TIME. PT IS CONFUSED AND ALERT TO SELF ONLY. PT IS COMPLIANT WITH MEDS, VITALS AND ASSESSMENT. REDIRECTION AND REORIENTED NEEDED. DIFFICULT REDIRECTION DUE TO LOW COGINITVE ABILITY. PT REQUIRES 3X ASSISTANCE WITH ADLS. PT IS COMPLETE ASSIST. INCONTIENT AND CAN NOT MAKE NEEDS KNOWN AT THIS TIME. CHAIR ALARM IN PLACE AND ACTIVE. WILL CONT PLAN OF CARE.
[2019-12-21 20:00] VITALS: BP 170/96
--- NOTE | 2019-12-21 20:35 | NUR ---
RECEIVED IN DAYROOM. SITTING CALMLY IN A RECLINING CHAIR WITH PEERS AT HIS SIDE. CALM AND COOPERATIVE WITH CARE AND ASSESSMENT. NO SIGNS OF AGGRESSION. REDIRECT AND REORIENT NEEDED. CONTINUES TO STI CALMLY IN DAYROOM. CONTINUE PLAN OF CARE.
[2019-12-22 08:00] VITALS: BP 121/80
--- NOTE | 2019-12-22 13:02 | NUR ---
RECEIVED IN HALLWAY OUTSIDE OF NURSES STATION. CALM AND COOPERATIVE WITH CARE AND ASSESSMENT. NO AGGRESSION TODAY. REDIRECT AND REORIENT NEEDED. SITTING IN GROUP AT THIS TIME. CONTINUE PLAN OF CARE.
--- NOTE | 2019-12-22 14:04 | PN ---
PATIENT:LISBETH BUCHANAN JR MEDICAL RECORD: [id number] LOCATION:[facility] ADMISSION DATE: 12/11/19 PROGRESS NOTE DATE OF SERVICE: 12/21/2019 SUBJECTIVE: The patient's case was discussed with staff. He has no new complaint. OBJECTIVE: The patient is in good behavioral control, but severely impaired cognitively. He slept well, but he is not eating very well. He is withdrawn and has minimal interaction. ASSESSMENT: Dementia. PLAN: The patient is going to be transitioned to a intermediate tomorrow with hospice care. His prognosis is very poor. His dementia is advanced. TRANSINT:[id number] Voice Confirmation ID: [id number] DOCUMENT ID: [id number] ANA DOSHI MD at 1404 CC: [id number] DICTATION DATE: 12/21/19 1445 SUSPENDER CUTTER: 12/22/19 0131 ADM IN [facility] [address] [place] [address]
--- NOTE | 2019-12-22 16:30 | NUR ---
REPORT CALLED INTO [facility] TO ZAID SHAFER LPN. VITALS SIGNS REPORTED AND PAPPERWORK WAS FAXED TO HOSPICE AND [facility]. CALL [facility] FOR TRANSFER. ALL PAPERWORK FILLED OUT. WILL NOTIFY FAMILY OF DISCHARGE UPON PENDING.
--- NOTE | 2019-12-22 17:40 | NUR ---
PT DISCHARGED TO [facility] VIA [facility]. PT TOLERATED TRANSFER WELL. PAPERWORK FAXED AND PAPER COPY SENT WITH PT. NOTIFIED NAMITA BUCHANAN OF EMS TRANSFER. NURSE NOTIFIED [facility] OF PT LEAVING AT THIS TIME. ALL BELONGINGS SENT WITH PT AT THIS TIME.
== END 2019-12-22 14:20 | disposition hospice, inpatient (51) | DRG 884 ==
LOC: D.ER 18:36 → D.PSYCH 21:20
PROVIDERS: Family Medicine; ADMIT Psychiatry & Neurology Psychiatry; ATTEND Psychiatry & Neurology Psychiatry
DX: F01.51 Vascular dementia, unspecified severity, with behavioral disturbance (principal); F02.81 Dementia in other diseases classified elsewhere, unspecified severity, with behavioral disturbance; F05 Delirium due to known physiological condition; N39.0 Urinary tract infection, site not specified; G30.9 Alzheimer's disease, unspecified; F41.8 Other specified anxiety disorders; K21.9 Gastro-esophageal reflux disease without esophagitis; N40.0 Benign prostatic hyperplasia without lower urinary tract symptoms; K59.00 Constipation, unspecified; E78.5 Hyperlipidemia, unspecified; R63.0 Anorexia; E87.6 Hypokalemia; R32 Unspecified urinary incontinence